=== PATIENT | female | born 1995 | race Caucasian/White ===

== ENCOUNTER 2017-03-03 17:23 | Emergency (ER) | payer OTHER ==
[~2017-03-03] VITALS: Ht 154.9 cm; Wt 59.1 kg
[2017-03-03] MEDS ORDERED: NS 500 ML IV ONE (18:00)
[2017-03-03 18:56] LABS: ANION GAP 5 MEQ/L (8-16); BLOOD UREA NITROGEN 16 MG/DL (7-18); CALCIUM LEVEL 8.9 MG/DL (8.5-10.1); CARBON DIOXIDE LEVEL 27 MEQ/L (21-32); CHLORIDE LEVEL 110 MEQ/L (98-107); CREATININE FOR GFR 0.74 MG/DL (0.55-1.02); GLOMERULAR FILTRATION RATE > 60.0 (>60); GLUCOSE, FASTING 85 MG/DL (70-105); POTASSIUM SERUM 4.1 MEQ/L (3.5-5.1); SODIUM LEVEL 142 MEQ/L (136-145)
--- NOTE | 2017-03-03 19:00 | REPUSA ---
Clinical history: vaginal bleeding. Findings: Real-time transabdominal and transvaginal ultrasound images of the pelvis were obtained. An anteverted uterus is noted, measuring 7.9 x 3.6 x 6.1 cm. The uterus demonstrates normal echotextu re and echogenicity. The endometrial stripe measures 5 mm and is within normal limits. The right ovar y measures 2.2 x 2.0 x 2.3 cm. The left ovary measur 52.7 x 2.4 x 1.8 cm. No adnexal masses are seen . Color Doppler flow is seen within both ovaries. There is no evidence of free fluid. Impression: Unremarkable ultrasound examination of the pelvis. Differential diagnosis includes early , missed , or ectopic . Follow-up with serial serum beta hCG levels is salty mmended.
[2017-03-03 19:17] LABS: BASO % 0.5 % (0.0-1.0); EOS # 0.2 K/mm3 (0.0-0.50); EOS % 2.5 % (0.0-3.0); LARGE UNSTAINED CELL # 0.1 K/mm3 (0.0-0.4); LARGE UNSTAINED CELL % 1.9 % (0.0-4.0); LYMPH # 2.2 K/mm3 (1.5-6.5); LYMPH % 35.7 % (24.0-44.0); MEAN CORPUSCULAR HEMOGLOBIN 26.9 pg (27.0-33.0); MEAN CORPUSCULAR HGB CONC 32.4 g/dl (32.0-36.5); MONO # 0.4 K/mm3 (0.0-0.8); MONO % 6.4 % (0.0-5.0); NEUTROPHILS # 3.2 K/mm3 (1.8-7.7); NEUTROPHILS % 53.1 % (36.0-66.0); PLATELET COUNT, AUTOMATED 196 k/mm3 (150-450); RED CELL DISTRIBUTION WIDTH 13.7 % (11.5-14.5); WHITE BLOOD COUNT 5.9 K/mm3 (4.0-10.0)
[2017-03-03 20:05] VITALS: BP 121/73
[2017-04-06] MEDS ORDERED: NEXP1IMP SC (11:15)
== END 2017-03-03 20:12 | disposition home or self-care (01) ==
LOC: M ED 17:54
DX: N93.9 Abnormal uterine and vaginal bleeding, unspecified (principal)

== ENCOUNTER → 2017-04-07 | Day surgery (SDC) | payer OTHER ==
[~2017-04-07] VITALS: Ht 154.9 cm; Wt 63.5 kg
[~2017-04-07] MED LIST: ACETAMINOPHEN 650 MG SUPP As Ordered ONE; KETOROLAC 30 MG/ML VIAL (J1885) IV PRN; LIDOCAINE 1% SDV 5 ML VIAL SQ ONE; LR 1,000 ML IV ONE; LR 1,000 ML IV SCH; METOCLOPRAMIDE INJ 10MG/2ML VIAL (J2765) IV PRN; MIDAZOLAM INJ 2 MG/2 ML VIAL (J2250) As Ordered ONE; NEXP1IMP SC; ONDANSETRON 4MG/2ML VIAL (J2405) IV PRN; fentaNYL 100 MCG/2 ML INJECTION (J3010) As Ordered ONE
[2017-04-07 12:30] LABS: MEAN CORPUSCULAR HEMOGLOBIN 27.7 pg (27.0-33.0); MEAN CORPUSCULAR HGB CONC 33.1 g/dl (32.0-36.5); MEAN CORPUSCULAR VOLUME 83.7 fl (80.0-96.0); RED CELL DISTRIBUTION WIDTH 13.7 % (11.5-14.5); WHITE BLOOD COUNT 5.5 K/mm3 (4.0-10.0)
[2017-04-07 13:06] LABS: ANION GAP 10 MEQ/L (8-16); BLOOD UREA NITROGEN 14 MG/DL (7-18); CALCIUM LEVEL 9.3 MG/DL (8.5-10.1); CARBON DIOXIDE LEVEL 26 MEQ/L (21-32); CHLORIDE LEVEL 105 MEQ/L (98-107); CREATININE FOR GFR 0.66 MG/DL (0.55-1.02); GLOMERULAR FILTRATION RATE > 60.0 (>60); GLUCOSE, FASTING 86 MG/DL (70-105); HCG, SERUM QUANTITATIVE < 1.0 MIU/ML; POTASSIUM SERUM 4.1 MEQ/L (3.5-5.1); SODIUM LEVEL 141 MEQ/L (136-145)
[2017-04-07] MEDS: PERCOCET 5MG/325MG TAB PO PRN ×2 (15:00→15:30)
[2017-04-07] MEDS: fentaNYL 100 MCG/2 ML INJECTION (J3010) IV PRN ×4 (15:25→15:40)
[2017-04-07 16:40] VITALS: BP 127/70
--- NOTE | 2017-04-14 21:44 | RO ---
DATE OF PROCEDURE: 04/07/2017 PREOPERATIVE DIAGNOSIS: Abnormal uterine bleeding. POSTOPERATIVE DIAGNOSIS: Abnormal uterine bleeding enterocele prolapse. Left uterosacral. OPERATION: Hysteroscopy dilatation and curettage (D and C). SURGEON: Dr. Seng Smith ANESTHESIA: General. ESTIMATED BLOOD LOSS: Less than 20 mL. PROCEDURE: After adequate time-out, prepped and draped in lithotomy position, bladder drained for 250 mL of clear urine. Antibiotics not indicated. Weighted speculum in the vagina. The first thing that we noticed that this lady has a large enterocele and defect of the left uterosacral with almost prolapse found midportion of portion of vagina, probably secondary to vaginal delivery. Single-tooth tenaculum was placed in the anterior lip of the cervix. There was some degree of cervical uterine descent. Uterus sounded to a depth of 8 cm. Hysteroscopic evaluation after dilatation to a Melanie 8 reviewed a intrauterine cavity that had no anatomic abnormalities. The os on the right and os on the left were noted to be normal. She does have patchy endometrium on either side of the lining sites that we saw, the rest of the entire cavity seemed to be denuded of endometrium this is possibly related to the fact she has a neck splint on in place and is causing irregular and abnormal bleeding. A sample was taken and sent off to pathology under separate cover to confirm our suspicions on direct visualization. We used 150 mL in and 150 mL out. All instruments removed the uterus was placed anatomical position well contracted and the patient was sent to recovery in good condition for discussion of options at our 2-week postop check.
== END ==
LOC: M SDC 11:56
PROVIDERS: ATTEND Obstetrics & Gynecology
DX: N93.9 Abnormal uterine and vaginal bleeding, unspecified (principal); N81.5 Vaginal enterocele; N81.10 Cystocele, unspecified; F41.9 Anxiety disorder, unspecified; Z79.3 Long term (current) use of hormonal contraceptives
CPT/HCPCS: 36415; 58558; 80048; 84702; 85027; 88305; J2250; J2405; J2765; J3010

== ENCOUNTER 2017-09-26 18:53 | Emergency (ER) | payer OTHER ==
[2017-09-26 22:12] LABS: KETONE, URINE AUTO RFX NEGATIVE (NEGATIVE); LEUKOCYTE ESTERASE UR AUTO RFX NEGATIVE (NEGATIVE); NITRITE, URINE AUTO RFX NEGATIVE (NEGATIVE); RBC, URINE AUTO RFX 50 /HPF (0-3); SPECIFIC GRAVITY UR AUTO RFX 1.014 (1.002-1.035); SQUAM EPITHELIAL CELL UR AURFX 3 /HPF (0-6); WBC, URINE AUTO RFX 0 /HPF (0-3)
[2017-09-26 22:17] LABS: BASO % 0.5 % (0.0-1.0); EOS # 0.2 10^3/uL (0.0-0.50); EOS % 1.8 % (0.0-3.0); HEMATOCRIT 45.9 % (36.0-47.0); HEMOGLOBIN 14.9 g/dl (12.0-16.0); IMMATURE GRANULOCYTE % 0.1 % (0-0); LYMPH # 2.7 10^3/uL (1.5-6.5); MEAN CORPUSCULAR HEMOGLOBIN 27.8 pg (27.0-33.0); MEAN CORPUSCULAR HGB CONC 32.5 g/dl (32.0-36.5); MEAN CORPUSCULAR VOLUME 85.6 fl (80.0-96.0); MONO # 0.6 10^3/uL (0.0-0.8); MONO % 7.4 % (0.0-5.0); NEUTROPHILS # 4.9 10^3/uL (1.8-7.7); NEUTROPHILS % 58.2 % (36.0-66.0); PLATELET COUNT, AUTOMATED 245 10^3/uL (150-450); RED BLOOD COUNT 5.36 10^6/uL (4.00-5.40); RED CELL DISTRIBUTION WIDTH 13.2 % (11.5-14.5); WHITE BLOOD COUNT 8.4 10^3/uL (4.0-10.0)
[2017-09-26 22:36] LABS: CONTROL LINE UCG INT CTR LINE PRESENT; URINE PREG TEST NEGATIVE (NEGATIVE)
[2017-09-26 22:43] LABS: ANION GAP 7 MEQ/L (8-16); BLOOD UREA NITROGEN 18 MG/DL (7-18); C REACTIVE PROTEIN QUANTITATIV < 0.30 MG/DL (0.00-0.30); CALCIUM LEVEL 9.1 MG/DL (8.5-10.1); CARBON DIOXIDE LEVEL 29 MEQ/L (21-32); CHLORIDE LEVEL 104 MEQ/L (98-107); CREATININE FOR GFR 0.57 MG/DL (0.55-1.02); GLOMERULAR FILTRATION RATE > 60.0 (>60); GLUCOSE, FASTING 91 MG/DL (70-105); POTASSIUM SERUM 3.9 MEQ/L (3.5-5.1); SODIUM LEVEL 140 MEQ/L (136-145)
[2017-09-26] MEDS: NORCO, ANEXSIA 5/325MG TABLET (HYDROcodone/ACETAMINOPHEN) PO (22:47)
[2017-09-26] MEDS: ONDANSETRON 4MG/2ML VIAL (J2405) IV (22:47)
[2017-09-26] MEDS: DOXYCYCLINE HYCLATE 100 MG TAB PO (23:45)
[2017-09-26] MEDS: metroNIDAZOLE (FLAGYL) 500 MG TAB PO (23:45)
[2017-09-26] MEDS: ONDANSETRON 4 MG ORAL DISINTEGRATING TAB (S0181) PO (23:45)
[2017-09-26] MEDS: cefTRIAXone SOD 250 MG VIAL (J0696) IV (23:52)
[2017-09-26 23:59] LABS: CHLAMYDIA DNA AMPLIFICATION NEGATIVE (NEGATIVE); GC DNA AMPLIFICATION NEGATIVE (NEGATIVE)
== END 2017-09-27 00:27 | disposition home or self-care (01) ==
LOC: M ED 09-27 00:27
DX: N73.9 Female pelvic inflammatory disease, unspecified (principal); F41.9 Anxiety disorder, unspecified; Z79.2 Long term (current) use of antibiotics; Z79.3 Long term (current) use of hormonal contraceptives; Z98.890 Other specified postprocedural states
CPT/HCPCS: J2405

== ENCOUNTER 2018-05-12 09:48 | Emergency (ER) | payer OTHER ==
[2018-05-12 10:31] LABS: KETONE, URINE AUTO RFX 2+ mg/dL (NEGATIVE); MUCUS, URINE RFX LARGE (NEGATIVE); NITRITE, URINE AUTO RFX NEGATIVE (NEGATIVE); RBC, URINE AUTO RFX 1 /HPF (0-3); SPECIFIC GRAVITY UR AUTO RFX 1.027 (1.002-1.035); SQUAM EPITHELIAL CELL UR AURFX 11 /HPF (0-6); WBC, URINE AUTO RFX 2 /HPF (0-3)
[2018-05-12 10:54] LABS: BASO % 0.2 % (0.0-1.0); EOS % 0.2 % (0.0-3.0); HEMATOCRIT 43.7 % (36.0-47.0); HEMOGLOBIN 14.4 g/dl (12.0-15.5); IMMATURE GRANULOCYTE % 0.3 % (0-3.0); LYMPH # 1.6 10^3/uL (1.5-6.5); LYMPH % 17.5 % (24.0-44.0); MEAN CORPUSCULAR HEMOGLOBIN 27.6 pg (27.0-33.0); MEAN CORPUSCULAR VOLUME 83.7 fl (80.0-96.0); MONO # 0.6 10^3/uL (0.0-0.8); MONO % 6.5 % (0.0-5.0); NEUTROPHILS # 6.7 10^3/uL (1.8-7.7); NEUTROPHILS % 75.3 % (36.0-66.0); PLATELET COUNT, AUTOMATED 238 10^3/uL (150-450); RED BLOOD COUNT 5.22 10^6/uL (4.00-5.40); RED CELL DISTRIBUTION WIDTH 13.6 % (11.5-14.5)
[2018-05-12 11:03] LABS: LEUKOCYTE ESTERASE UR AUTO RFX 2+ (NEGATIVE)
[2018-05-12 11:25] LABS: ALBUMIN 3.8 GM/DL (3.2-5.2); ALBUMIN/GLOBULIN RATIO 1.06 (1.00-1.93); ALKALINE PHOSPHATASE 51 U/L (45-117); ALT/SGPT 31 U/L (12-78); ANION GAP 11 MEQ/L (8-16); AST/SGOT 17 U/L (7-37); BILIRUBIN,DIRECT 0.2 MG/DL (0.0-0.2); BILIRUBIN,TOTAL 0.6 MG/DL (0.2-1.0); BLOOD UREA NITROGEN 10 MG/DL (7-18); CALCIUM LEVEL 8.9 MG/DL (8.5-10.1); CARBON DIOXIDE LEVEL 23 MEQ/L (21-32); CHLORIDE LEVEL 105 MEQ/L (98-107); CREATININE FOR GFR 0.49 MG/DL (0.55-1.30); GLOMERULAR FILTRATION RATE > 60.0 (>60); GLUCOSE, FASTING 98 MG/DL (70-100); HCG, SERUM QUANTITATIVE 48269 MIU/ML; POTASSIUM SERUM 3.5 MEQ/L (3.5-5.1); SODIUM LEVEL 139 MEQ/L (136-145); TOTAL PROTEIN 7.4 GM/DL (6.4-8.2)
== END 2018-05-12 12:02 | disposition home or self-care (01) ==
LOC: M ED 09:48
DX: O21.0 Mild hyperemesis gravidarum (principal); O36.8991 Maternal care for other specified fetal problems, unspecified trimester, fetus 1; O99.341 Other mental disorders complicating pregnancy, first trimester; F32.9 Major depressive disorder, single episode, unspecified; F41.9 Anxiety disorder, unspecified; Z87.442 Personal history of urinary calculi; Z3A.01 Less than 8 weeks gestation of pregnancy
CPT/HCPCS: 76801

== ENCOUNTER 2018-05-18 16:23 | Emergency (ER) | payer OTHER ==
[2018-05-18 18:36] LABS: BASO % 0.3 % (0.0-1.0); EOS # 0.1 10^3/uL (0.0-0.50); EOS % 0.7 % (0.0-3.0); HEMATOCRIT 45.7 % (36.0-47.0); IMMATURE GRANULOCYTE % 0.2 % (0-3.0); LYMPH # 2.2 10^3/uL (1.5-6.5); LYMPH % 23.9 % (24.0-44.0); MEAN CORPUSCULAR HEMOGLOBIN 27.4 pg (27.0-33.0); MEAN CORPUSCULAR HGB CONC 32.8 g/dl (32.0-36.5); MEAN CORPUSCULAR VOLUME 83.5 fl (80.0-96.0); MONO # 0.7 10^3/uL (0.0-0.8); MONO % 7.4 % (0.0-5.0); NEUTROPHILS # 6.2 10^3/uL (1.8-7.7); NEUTROPHILS % 67.5 % (36.0-66.0); PLATELET COUNT, AUTOMATED 266 10^3/uL (150-450); RED BLOOD COUNT 5.47 10^6/uL (4.00-5.40); RED CELL DISTRIBUTION WIDTH 13.6 % (11.5-14.5); WHITE BLOOD COUNT 9.2 10^3/uL (4.0-10.0)
[2018-05-18 18:45] LABS: KETONE, URINE AUTO RFX NEGATIVE (NEGATIVE); LEUKOCYTE ESTERASE UR AUTO RFX NEGATIVE (NEGATIVE); NITRITE, URINE AUTO RFX NEGATIVE (NEGATIVE); RBC, URINE AUTO RFX 1 /HPF (0-3); SPECIFIC GRAVITY UR AUTO RFX 1.003 (1.002-1.035); SQUAM EPITHELIAL CELL UR AURFX 0 /HPF (0-6); WBC, URINE AUTO RFX 0 /HPF (0-3)
[2018-05-18 19:06] LABS: HCG, SERUM QUANTITATIVE 86445 MIU/ML
== END 2018-05-18 20:50 | disposition home or self-care (01) ==
LOC: M ED 16:23
DX: O20.8 Other hemorrhage in early pregnancy (principal); Z3A.01 Less than 8 weeks gestation of pregnancy; O99.341 Other mental disorders complicating pregnancy, first trimester; F33.9 Major depressive disorder, recurrent, unspecified; F41.9 Anxiety disorder, unspecified
CPT/HCPCS: 76801

== ENCOUNTER 2018-07-19 19:02 | Emergency (ER) | payer OTHER ==
[2018-07-19 19:35] LABS: KETONE, URINE AUTO RFX NEGATIVE (NEGATIVE); NITRITE, URINE AUTO RFX NEGATIVE (NEGATIVE); RBC, URINE AUTO RFX 1 /HPF (0-3); SPECIFIC GRAVITY UR AUTO RFX 1.012 (1.002-1.035); SQUAM EPITHELIAL CELL UR AURFX 1 /HPF (0-6); WBC, URINE AUTO RFX 1 /HPF (0-3)
[2018-07-19 19:41] LABS: HEMATOCRIT 39.9 % (36.0-47.0); HEMOGLOBIN 13.2 g/dl (12.0-15.5); MEAN CORPUSCULAR HGB CONC 33.1 g/dl (32.0-36.5); MEAN CORPUSCULAR VOLUME 84.7 fl (80.0-96.0); PLATELET COUNT, AUTOMATED 187 10^3/uL (150-450); RED BLOOD COUNT 4.71 10^6/uL (4.00-5.40); RED CELL DISTRIBUTION WIDTH 12.8 % (11.5-14.5); WHITE BLOOD COUNT 9.2 10^3/uL (4.0-10.0)
[2018-07-19 20:02] LABS: ALBUMIN 3.2 GM/DL (3.2-5.2); ALKALINE PHOSPHATASE 64 U/L (45-117); ALT/SGPT 16 U/L (12-78); ANION GAP 9 MEQ/L (8-16); AST/SGOT 5 U/L (7-37); BILIRUBIN,TOTAL 0.2 MG/DL (0.2-1.0); BLOOD UREA NITROGEN 6 MG/DL (7-18); CALCIUM LEVEL 8.3 MG/DL (8.5-10.1); CARBON DIOXIDE LEVEL 22 MEQ/L (21-32); CHLORIDE LEVEL 107 MEQ/L (98-107); GLOMERULAR FILTRATION RATE > 60.0 (>60); GLUCOSE, FASTING 94 MG/DL (70-100); SODIUM LEVEL 138 MEQ/L (136-145); TOTAL PROTEIN 6.4 GM/DL (6.4-8.2)
[2018-07-19 20:21] LABS: LEUKOCYTE ESTERASE UR AUTO RFX TRACE (NEGATIVE)
[2018-07-19] MEDS: metroNIDAZOLE (FLAGYL) 500 MG TAB PO (23:08)
[2018-07-19 23:17] LABS: CHLAMYDIA DNA AMPLIFICATION NEGATIVE (NEGATIVE); GC DNA AMPLIFICATION NEGATIVE (NEGATIVE)
== END 2018-07-19 23:11 | disposition home or self-care (01) ==
LOC: M ED 19:02
DX: O26.892 Other specified pregnancy related conditions, second trimester (principal); R10.2 Pelvic and perineal pain; O23.592 Infection of other part of genital tract in pregnancy, second trimester; O26.612 Liver and biliary tract disorders in pregnancy, second trimester; K76.89 Other specified diseases of liver; Z87.440 Personal history of urinary (tract) infections; Z87.442 Personal history of urinary calculi; Z88.5 Allergy status to narcotic agent; Z88.8 Allergy status to other drugs, medicaments and biological substances; Z3A.16 16 weeks gestation of pregnancy
CPT/HCPCS: 76811

== ENCOUNTER 2018-12-25 23:50 | Inpatient (IN) | payer OTHER ==
[~2018-12-25] VITALS: Ht 154.9 cm; Wt 73.6 kg
[~2018-12-25 23:50] MED LIST changes: -ACETAMINOPHEN 650 MG SUPP As Ordered ONE; +DOXY100C37 PO; +FLAG500T PO; +HYDR-3715 PO; +KEFL500C17 PO; -KETOROLAC 30 MG/ML VIAL (J1885) IV PRN; -LIDOCAINE 1% SDV 5 ML VIAL SQ ONE; -LR 1,000 ML IV ONE; -LR 1,000 ML IV SCH; -METOCLOPRAMIDE INJ 10MG/2ML VIAL (J2765) IV PRN; -MIDAZOLAM INJ 2 MG/2 ML VIAL (J2250) As Ordered ONE; -ONDANSETRON 4MG/2ML VIAL (J2405) IV PRN; +REGL10TA6 PO; +ZOFR4TAB14 PO; -fentaNYL 100 MCG/2 ML INJECTION (J3010) As Ordered ONE
[2018-12-26] VITALS (29 sets, daily range): BP systolic 79–125; BP diastolic 44–72
[2018-12-26] MEDS ORDERED: PRENTAB9 PO (00:15)
[2018-12-26 00:56] LABS: HEMATOCRIT 35.8 % (36.0-47.0); HEMOGLOBIN 11.3 g/dl (12.0-15.5); MEAN CORPUSCULAR HEMOGLOBIN 24.4 pg (27.0-33.0); MEAN CORPUSCULAR HGB CONC 31.6 g/dl (32.0-36.5); MEAN CORPUSCULAR VOLUME 77.3 fl (80.0-96.0); PLATELET COUNT, AUTOMATED 157 10^3/uL (150-450); RED BLOOD COUNT 4.63 10^6/uL (4.00-5.40); WHITE BLOOD COUNT 9.1 10^3/uL (4.0-10.0)
[2018-12-26] MEDS: LR 1,000 ML IV SCH ×3 (02:35→15:03)
[2018-12-26] MEDS ORDERED: BUTORPHANOL 2 MG/ML INJ (J0595) IV ONE (02:45)
[2018-12-26] MEDS ORDERED: PROMETHAZINE INJ 25 MG/ML VIAL (J2550) IV ONE (02:45)
--- NOTE | 2018-12-26 07:54 | HPE ---
DATE OF ADMISSION: 12/26/2018 HISTORY: 23-year-old, (G) 5, para (P) 1 female at 39 and 2/7 weeks gestation by last menstrual period (LMP) plus early ultrasound who presents with regular contractions every 3-4 minutes for the last several hours. Contractions have been increasing in intensity. There is good movement. COURSE: care has been through [facility]. No complications. OBSTETRICAL HISTORY: 11/2016, 40 week, vaginal delivery, 6 pound female infant. The patient has also had 3 spontaneous abortions. MEDICAL HISTORY: 1. Depression. 2. Urinary tract infections. SURGICAL HISTORY: None. ALLERGIES: None. SOCIAL HISTORY: The patient lives at [facility]. Denies cigarettes, alcohol and drug use. FAMILY HISTORY: Noncontributory. PHYSICAL EXAMINATION: Blood pressure 134/74. Pulse 84. She appears uncomfortable. Head and Neck Exam: Normal. Lungs: Clear. Heart: Regular rate and rhythm. Abdomen: Nontender. Gravid. heart tones Category I. Sterile Vaginal Exam: 3 cm, 80%, -2, posterior, soft, vertex. Contractions every 2-4 minutes. Extremities: Nontender. LABS: Blood type O positive. Rubella immune. RPR nonreactive. Hepatitis B and C negative. ASSESSMENT: 23- year-old, G5, P1 female at 39 and 2/7 weeks gestation who presents in early labor. PLAN: Patient is admitted on 12/26/2018.
--- NOTE | 2018-12-26 09:48 | IPNPDOC ---
Text Note Date of Service The patient was seen on 12/26/18. NOTE Intrapartum Note Margot is a 23yo with SIUP at 39+ weeks who presented last night with regular painful ctx and was admitted for labor, SCE /-2, by Dr. Hodges. Overnight she received a dose of stadol that helped her pain. Vitals wnl, afebrile General: appears comfortable Cat I FHRT with +accels, -decels, mod maddy ctx difficult to mixing picker tender on toco SCE /-2, AROM performed with clear fluid noted, well tolerated Will plan to observe for 2-4hr, if ctx do not become more regular/painful, will start pitocin, which I discussed with the patient Continue close observation Safe to proceed Dr. Alana Ames MD VS,Pat, I+O VS, Pat, I+O Laboratory Tests 12/26/18 00:50 Red Blood Count 4.63, Mean Corpuscular Volume 77.3 L, Mean Corpuscular Hemoglobin 24.4 L, Mean Corpuscular Hemoglobin Concent 31.6 L, Red Cell Distribution Width 14.7 H Vital Signs Date Time Temp Pulse Resp B/P (MAP) Pulse Ox O2 Delivery O2 Flow Rate FiO2 12/26/18 07:31 96.9 89 16 108/66 (80) I&O- Last 24 Hours up to 6 AM 12/26/18 06:00 Output Total 1000 ml Balance -1000 ml Alana Ames MD Dec 26, 2018 09:48
[2018-12-26] MEDS ORDERED: FENTANYL 2MCG/ML ROPIVACAINE 0.2% IN 0.9% NACL 100ML IVBAG As Ordered ONE (12:26)
[2018-12-26] MEDS ORDERED: EPIDURAL COMMENT XX SCH (13:30)
[2018-12-26] MEDS ORDERED: LACTATED RINGER'S 1000 ML IV PRN (13:30)
[2018-12-26] MEDS ORDERED: NALOXONE INJ 0.4 MG/1 ML VIAL (J2310) IV PRN (13:30)
[2018-12-26] MEDS ORDERED: ONDANSETRON 4MG/2ML VIAL (J2405) IV PRN (13:30)
[2018-12-26] MEDS ORDERED: diphenhydrAMINE INJ 50MG/ML VIAL (J1200) IV PRN (13:30)
[2018-12-26] MEDS ORDERED: EPIDURAL/PCA KEYS XX PRN (13:30)
[2018-12-26] MEDS ORDERED: ePHEDrine SULFATE 25 MG/5 ML(5MG/ML) SYRINGE IV PRN (13:30)
[2018-12-26] MEDS ORDERED: REFRIGERATOR IV KEYS XX PRN (13:30)
[2018-12-26] MEDS ORDERED: FENTANYL/ROPIVACAINE/NACL BAG 100 ML EPIDURAL SCH (13:30)
[2018-12-26] MEDS ORDERED: OXYTOCIN DRIP 30 UNITS in APPROPRIATE DILUENT 1 EA IV SCH ×2 (13:45→18:00)
--- NOTE | 2018-12-26 17:57 | DNPDOC ---
[facility] Delivery Note Delivery Note DATE OF DELIVERY: 26 Dec 2018 PREDELIVERY DIAGNOSIS: 39w2d gestation and labor. POST DELIVERY DIAGNOSIS: Delivered. PROCEDURE: Spontaneous vaginal delivery CYBER SECURITY: Dr. Alana Ames MD ANESTHESIA: epidural ESTIMATED BLOOD LOSS: 200 mL. FINDINGS: 7 pound 2 ounce (3240g) female infant, Score 9/9 DELIVERY SUMMARY: Margot is a 23yo [id number] s/p uncomplicated at 39w2d after presenting in active labor, delivering at 17:34 on 12/26/18. She presented at 3cm and with pitocin augmentation and AROM (clear) progressed to C/C/0 at which point she beg an pushing. She had received an epidural prior. Great maternal effort, head delivered OA, restituted [id number]. Right anterior shoulder delivered easily followed by posterior shoulder and corpus. There was a compound left hand. Infant was vigorous with spontaneous cry, placed on maternal abdomen. Nose and mouth were suctioned with bulb suction, apgars 9/9. Cord clamped x2 after 2 m inutes and cut by FOB. Cord blood obtained for MBT O positive. Uterine massage performed, traction on the umbilical cord, placenta delivered spontaneously and intact with 3 vessel centrally inserted cord. IV pitocin was given per protocol, bimanual massage was performed and uterus then firm at u-1cm. Inspection of perineum and vagina revealed no laceration. Hemostasis was noted. Mom and infant were doing well when I left the room. MD Hui Solis Katrina D MD Dec 26, 2018 17:56
[2018-12-26] MEDS ORDERED: DOCUSATE SODIUM 100 MG CAP PO PRN (18:00)
[2018-12-26] MEDS ORDERED: ACETAMINOPHEN 500 MG TAB PO PRN (18:00)
[2018-12-26] MEDS ORDERED: RHOGAM 300 MCG (1500 IU) INJ (J2790) IM SCH (18:00)
[2018-12-26] MEDS ORDERED: DIBUCAINE 1% OINTMENT 30GM TOP PRN (18:00)
[2018-12-26] MEDS ORDERED: MEASLES,MUMPS,RUBELLA VACCINE INJ (MMR-II) (90707) SC SCH (18:00)
[2018-12-26] MEDS: IBUPROFEN 800 MG TAB PO PRN (21:30)
[2018-12-27 05:54] VITALS: BP 104/57
--- NOTE | 2018-12-27 07:18 | IPNPDOC ---
Progress Note Date of Service: Dec 27, 2018 Day#: 1 Progress Note PPD 1 SUBJECT: Margot is a 23yo [id number] s/p uncomplicated at 39w2d after presenting in active labor, delivering at 17:34 on 12/26/18, having no laceration, doing well day # 1. She has been ambulating, voiding spontaneously without issue and tolerating regular diet. Breast feeding/pumping without issue. Reports lochia is like a normal period, was heavier last night but has tapered. Has some cramping effectively treated with motrin. No f/c/n/v /CP/SOB. OBJECTIVE: VITAL SIGNS: Within normal limits, normotensive, afebrile. Alert and oriented times three. Abdomen: Fundus firm at U-2. Soft, NTTP. ASSESSMENT: Margot is a 23yo [id number] s/p uncomplicated at 39w2d after presenting in active labor, delivering at 17:34 on 12/26/18, having no laceration, doing well day # 1. Vitals within normal limits, afebrile, hemodynamically stable with no evidence of infection. PLAN: 1. Discharge home later this afternoon 2. Tylenol and Motrin for pain 3. Encourage breast feeding and ambulation. 4. Regular diet 5. Vaginal rest 6 weeks 6. Discussed return precautions 7. Next visit 6wk PP visit [facility] clinic Dr. Alana Ames MD VS, I&O, 24H, Fishbone Vital Signs/I&O Vital Signs Date Time Temp Pulse Resp B/P (MAP) Pulse Ox O2 Delivery O2 Flow Rate FiO2 12/27/18 05:54 98.1 85 17 104/57 (73) 99 I&O- Last 24 Hours up to 6 AM 12/27/18 06:00 Intake Total 680 ml Output Total 1500 ml Balance -820 ml Alana Ames MD Dec 27, 2018 07:18
[2018-12-27] MEDS ORDERED: PRENATAL VITAMINS CHEWABLE TABLET PO SCH (09:00)
[2018-12-27] MEDS: IBUPROFEN 800 MG TAB PO PRN (10:56)
[2018-12-27] MEDS ORDERED: IBUP-1022 PO (15:34)
[2018-12-27] MEDS ORDERED: ACET-683 PO (15:34)
== END 2018-12-27 18:40 | disposition home or self-care (01) | DRG 807 ==
LOC: M LDO 23:50 → M LDI 12-26 00:32 → M OBS 12-26 19:42
PROVIDERS: ADMIT Specialist; ATTEND Obstetrics & Gynecology
PROC: 10E0XZZ Delivery of Products of Conception, External Approach (ICD-10-PCS; principal; 2018-12-26)
PROC: 10907ZC Drainage of Amniotic Fluid, Therapeutic from Products of Conception, Via Natural or Artificial Opening (ICD-10-PCS; 2018-12-26)
DX: O32.6XX0 Maternal care for compound presentation, not applicable or unspecified (principal); Z37.0 Single live birth; Z3A.39 39 weeks gestation of pregnancy

== ENCOUNTER 2019-05-31 07:59 | Day surgery (SDC) | payer OTHER ==
[~2019-05-31] VITALS: Ht 154.9 cm; Wt 64.3 kg
[~2019-05-31 07:59] MED LIST changes: +ACET-683 PO; +FERR325T3 PO; +IBUP-1022 PO; +LR 1,000 ML IV ONE; +PRENTAB9 PO; +ZOLO25TA PO
[2019-05-31] MEDS ORDERED: ROCURONIUM BROMIDE 50 MG/5 ML VIAL As Ordered ONE (08:03)
[2019-05-31] MEDS ORDERED: PROPOFOL 200 MG/20 ML VIAL As Ordered ONE (08:03)
[2019-05-31] MEDS ORDERED: dexameTHASONE 4 MG/ML 1ML VIAL (J1100) As Ordered ONE (08:03)
[2019-05-31] MEDS ORDERED: ONDANSETRON 4MG/2ML VIAL (J2405) As Ordered ONE (08:03)
[2019-05-31] MEDS ORDERED: LIDOCAINE 2% INJ 100 MG/5 ML SDV (FOR ANES.) As Ordered ONE (08:03)
[2019-05-31] MEDS ORDERED: KETOROLAC 60 MG/2 ML VIAL (J1885) As Ordered ONE (08:03)
[2019-05-31 08:28] LABS: HEMATOCRIT 42.3 % (36.0-47.0); HEMOGLOBIN 13.3 g/dl (12.0-15.5); MEAN CORPUSCULAR HEMOGLOBIN 26.3 pg (27.0-33.0); MEAN CORPUSCULAR HGB CONC 31.4 g/dl (32.0-36.5); MEAN CORPUSCULAR VOLUME 83.8 fl (80.0-96.0); PLATELET COUNT, AUTOMATED 184 10^3/uL (150-450); RED BLOOD COUNT 5.05 10^6/uL (4.00-5.40); WHITE BLOOD COUNT 5.2 10^3/uL (4.0-10.0)
[2019-05-31 08:50] LABS: HCG, SERUM QUALITATIVE NEGATIVE (NEGATIVE)
[2019-05-31] MEDS ORDERED: BUPIVACAINE HCL 0.5% 30 ML VIAL As Ordered ONE (10:19)
[2019-05-31] MEDS ORDERED: MIDAZOLAM INJ 2 MG/2 ML VIAL (J2250) As Ordered ONE (10:20)
[2019-05-31] MEDS ORDERED: fentaNYL 250 MCG/5 ML INJECTION (J3010) As Ordered ONE (10:20)
[2019-05-31] MEDS ORDERED: SUGAMMADEX SODIUM 500 MG/5 ML VIAL (BRIDION) As Ordered ONE (11:07)
[2019-05-31] MEDS ORDERED: SILVER NITRATE APPLICATOR As Ordered ONE (11:37)
[2019-05-31] MEDS ORDERED: fentaNYL 100 MCG/2 ML INJECTION (J3010) As Ordered ONE (11:59)
[2019-05-31] MEDS: fentaNYL 100 MCG/2 ML INJECTION (J3010) IV PRN ×2 (12:03→12:09)
[2019-05-31] MEDS ORDERED: LR 1,000 ML IV SCH (13:00)
[2019-05-31] MEDS ORDERED: oxyCODONE 5MG TAB PO PRN (13:00)
[2019-05-31] MEDS ORDERED: ONDANSETRON 4MG/2ML VIAL (J2405) IV PRN (13:00)
[2019-05-31 13:30] VITALS: BP 114/60
--- NOTE | 2019-06-01 10:14 | RO ---
DATE OF PROCEDURE: 05/31/2019 PREOPERATIVE DIAGNOSIS: Satisfied parity. POSTOPERATIVE DIAGNOSIS: Satisfied parity. PROCEDURE: Laparoscopic bilateral salpingectomy. SURGEON: Padilla Ding DO [employer] ASSOCIATE: Seng Smith MD ANESTHESIA: General. FLUIDS: 600 mL lactated Ringer (LR). URINE OUTPUT: 250 mL. ESTIMATED BLOOD LOSS (EBL): 3 mL. ANTIBIOTICS: None indicated. COMPLICATIONS: None. OPERATIVE FINDINGS: Normal pelvis with normal uterus, bilateral fallopian tubes, and normal ovaries, normal gastric curve, and normal liver edge. DETAILED PROCEDURE DESCRIPTION: The risks, benefits, indications, and alternatives of the procedure were reviewed with the patient, and informed consent was obtained. The patient was taken to the operating room, where general anesthesia was obtained without difficulty. The patient was then placed in the lithotomy position using gel-padded Larry stirrups. An examination under anesthesia was then performed and was significant for a mobile midline 8-week size uterus. The patient's arms were then gently tucked to the side with padding. The patient was then prepped and draped in the usual sterile fashion. A surgical time-out was then performed, and the patient's identity and planned procedure were verified with the operative team. The Barton catheter was placed first to drain the bladder. An acorn uterine manipulator was then inserted as a means to manipulate the uterus. Gloves were then exchanged, and attention was then turned to the patient's abdomen, where a 5-mm skin incision was then made in the inferior aspect of the umbilicus after injection of Marcaine. A 5-mm trocar and sleeve were then carefully introduced into the abdominal cavity under direct visualization at a 90-degree angle while tenting up the abdominal wall. Intraperitoneal placement was confirmed under direct visualization. Entry pressure was noted to be less than 5 mmHg. A pneumoperitoneum was obtained with several liters of CO2 gas. Upon entry into the peritoneal cavity, structures immediately below the incision were inspected and found to be free of injury. A survey of the patient's abdomen and pelvis was notable for a normal-appearing liver and gastric curve. The uterus, fallopian tubes, and ovaries were normal in appearance. The posterior cul-de-sac and anterior cul-de-sac were normal as well. Two additional 5-mm trocars, one in the left lateral aspect of the abdominal wall and one in the right lateral aspect of the abdominal wall, were then placed under direct laparoscopic visualization after skin incisions were made with a scalpel. Using LigaSure electrocautery, the left fallopian tube was dissected away from the mesosalpinx from its fimbriated end to the isthmic portion, taking care to cauterize any vasculature within the mesosalpinx. The fallopian tube was then amputated at the connection to the uterine cornua and was removed from the patient's abdomen through the right lower quadrant port site. Attention was then turned to the patient's right fallopian tube, which was lifted by a blunt grasper and removed in a similar fashion with the LigaSure electrocautery. The right fallopian tube was then amputated and also removed from the right lower quadrant port site with the blunt grasper. All operative sites were noted to be hemostatic. The gas was then turned off, and all CO2 was removed from the patient's abdomen. The patient was then given three manual breaths to assist with desufflation of the abdomen. All remaining ports were then removed under direct visualization. There was no bleeding seen from the trocar sites. The skin incisions were then closed with 4-0 Monocryl suture and then covered with Dermabond. The uterine manipulator was then removed from the patient's vagina. Silver nitrate sticks were then used to achieve hemostasis at the cervix. Hemostasis was assured. All instruments were then confirmed to have been removed from the vagina. At the completion of the case, sponge, instrument, and needle counts were correct times two. The patient tolerated the procedure well. She was cleansed and dried and taken out of the lithotomy position, awakened from anesthesia, and taken to the postanesthesia care unit (PACU) in stable condition. SETH
== END 2019-05-31 14:18 | disposition home or self-care (01) ==
LOC: M SDC 07:59
PROVIDERS: ATTEND Obstetrics & Gynecology
DX: Z30.2 Encounter for sterilization (principal); F41.9 Anxiety disorder, unspecified; F32.9 Major depressive disorder, single episode, unspecified; D64.9 Anemia, unspecified; Z79.899 Other long term (current) drug therapy; Z88.0 Allergy status to penicillin
CPT/HCPCS: 36415; 58661; 84703; 85027; 88302; J1100; J1885; J2250; J2405; J3010